=== PATIENT | female | born 1950 | race Caucasian/White ===

== ENCOUNTER 2017-04-23 14:58 | Observation (INO) | payer OTHER, MEDICARE ==
--- NOTE | 2017-04-23 15:49 | CPEKG ---
Heart Rate: 66 RR Interval: 909 P-R Interval: 164 QRSD Interval: 96 QT Interval: 404 QTC Interval: 424 P Dann[place]ora: 42 QRS Dannemora: 17 T Wave Dannemora: 36 EKG Severity - NORMAL ECG - EKG Impression: SINUS RHYTHM Electronically Signed By: Lucia Valenzuela 23-Apr-2017 20:06:38
--- NOTE | 2017-04-23 16:16 | EDPHY ---
H & P Time Seen by Provider: 04/23/17 15:29 HPI/ROS: CHIEF COMPLAINT: Multiple complaints HISTORY OF PRESENT ILLNESS: The patient is a 66-year-old female visiting [place] from [place] who presents to the emergency department with multiple complaints. She states that 2 weeks ago she developed cold-like symptoms. She had a sore throat in subsequent chills. She saw her content analyst 2 days later. At that time she had a negative workup with negative x-ray. She mentioned that she may have a sinus infection because she felt pressure on her head. He started her on Augmentin. She took the last dose yesterday. She has not had any improvement of her symptoms. She continues to have a mild sinus pressure. This is bilateral frontal. She has no neck pain or stiffness. Mild cough. No shortness of breath. No fevers or ongoing chills. Her sore throat is resolved. She has no chest pain or abdominal pain. No nausea vomiting or diarrhea. She has had mild frequency for the past 2 days. Patient adds that she may have struck her head 3 weeks ago. Since that time she has not felt quite right. She had no focal neurologic deficits. No visual change. No neck pain. REVIEW OF SYSTEMS: My complete review of systems is negative except as mentioned in the HPI. Past Medical/Surgical History: Includes hypertension, heart valve issue, high cholesterol, anxiety Past surgical history: Hysterectomy, carpal tunnel release Social history: The patient is from [place]. She does not smoke. Smoking Status: Never smoked Physical Exam: Vitals noted. 153/88. GENERAL: Well-appearing, in no acute distress, alert. HEENT: Eyes normal to inspection, normal pharynx, no signs of dehydration. NECK: No thyromegaly, no lymphadenopathy, supple. RESPIRATORY: Clear to auscultation bilaterally, no rales, rhonchi or wheezing. CVS: Regular rate and rhythm, no rubs, murmurs, or gallops. ABDOMEN: Soft, nontender, nondistended, no organomegaly. BACK: Normal to inspection, no CVA tenderness. SKIN: Normal color, no rash, warm, dry. No pallor. EXTREMITIES: No pedal edema, no calf tenderness, no Homans sign or cords, no joint swelling. NEURO/PSYCH: Higher functions: Alert and Oriented x3. Normal speech and cognition. Normal mood and affect. Cranial nerves: Normal as tested. Cerebellar: Normal as tested. Good finger to nose, good [id number], normal gait. Peripheral exam: Normal motor exam. Normal sensation. Constitutional: Initial Vital Signs Temperature (C) 37.0 C 04/23/17 15:06 Heart Rate 68 04/23/17 15:06 Respiratory Rate 16 04/23/17 15:06 Blood Pressure 153/88 H 04/23/17 15:06 O2 Sat (%) 97 04/23/17 15:06 O2 Delivery Mode Room Air Allergies/Adverse Reactions: No Known Allergies Allergy (Unverified 04/23/17 15:13) Home Medications: Medication Instructions Recorded Avapro 75 mg (*) 04/23/17 Coreg 04/23/17 Crestor 04/23/17 PRILOSEC 04/23/17 Zoloft 25mg (*) 04/23/17 Medical Decision Making - Diagnostics Imaging Results: Imaging Impressions Chest X-Ray 04/23/17 16:16 Impression: 1. Query airways disease with no superimposed acute abnormality identified. 2. See above report for additional findings. Head CT 04/23/17 17:06 Impression: Negative noncontrast CT of the head with no intracranial posttraumatic sequela identified. Results called and discussed with Dr. FARHEEN LAKE on 04/23/2017 at 17:59 ED Course/Re-evaluation: In the emergency department I discussed possible etiologies with the patient. I answered all her questions. She agreed the plan. EKG shows normal sinus rhythm, normal rate, normal axis, normal intervals. There are no ST or T-wave abnormalities. EKG is normal as interpreted by me. I reviewed the patient's laboratory studies. Of note her sodium was markedly low at 126. Chloride was also low. Her BUN and creatinine were normal. Head CT: Please refer the dictated report by Dr. Shreyas Mckenzie. No acute disease noted. No subdural hematoma. Chest x-ray: No acute disease noted. Discussed the results with the patient. I answered all her questions. I discussed the case with Dr. angel from hospital service. She will admit the patient. Urine sodium and urine osms were ordered. Differential Diagnosis: My differential includes but is not limited to sinusitis, pneumonia, bronchitis , viral illness, ACS, acute KS, chronic subdural, urinary tract infection, bacteremia, sepsis, electrolyte abnormality, sugar abnormality - Data Points Laboratory Results: Laboratory Results 04/23/17 15:30 04/23/17 15:30 04/23/17 04/23/17 04/23/17 16:40 16:40 15:30 WBC RBC Hgb Hct MCV MCH MCHC RDW Plt Count MPV Neut % (Auto) Lymph % (Auto) Petroleum % (Auto) Eos % (Auto) Baso % (Auto) Nucleat RBC Rel Count Absolute Neuts (auto) Absolute Lymphs (auto) Absolute Monos (auto) Absolute Eos (auto) Absolute Basos (auto) Absolute Nucleated RBC Immature Gran % Immature Gran # Sodium 126 mEq/L L mEq/L (134-144) Potassium 4.0 mEq/L mEq/L (3.5-5.2) Chloride 89 mEq/L L mEq/L (97-110) Carbon Dioxide 24 mEq/l mEq/l (22-31) Anion Gap 13 mEq/L mEq/L (8-16) BUN 10 mg/dL mg/dL (7-23) Creatinine 0.7 mg/dL mg/dL (0.6-1.0) Estimated GFR > 60 Glucose 118 mg/dL H mg/dL (70-100) Calcium 9.3 mg/dL mg/dL (8.5-10.4) Total Bilirubin 0.6 mg/dL mg/dL (0.1-1.4) Conjugated Bilirubin 0.3 mg/dL mg/dL (0.0-0.5) Unconjugated Bilirubin 0.3 mg/dL mg/dL (0.0-1.1) AST 48 IU/L H IU/L (14-46) ALT 53 IU/L H IU/L (9-52) Alkaline Phosphatase 59 IU/L IU/L (38-126) Troponin I < 0.012 ng/mL ng/mL (0.000-0.034) Total Protein 7.1 g/dL g/dL (6.3-8.2) Albumin 4.7 g/dL g/dL (3.5-5.0) Lipase 124 IU/L IU/L (23-300) Urine Color PALE YELLOW Urine Appearance CLEAR Urine pH 7.0 (5.0-7.5) Ur Specific [place] 1.003 (1.002-1.030) Urine Protein NEGATIVE (NEGATIVE) Urine Ketones NEGATIVE (NEGATIVE) Urine Blood NEGATIVE (NEGATIVE) Urine Nitrate NEGATIVE (NEGATIVE) Urine Bilirubin NEGATIVE (NEGATIVE) Urine Urobilinogen NEGATIVE EU EU (0.2-1.0) Ur Leukocyte Esterase NEGATIVE (NEGATIVE) Urine Osmolality Pending Ur Random Sodium Pending Urine Glucose NEGATIVE (NEGATIVE) 04/23/17 15:30 WBC 7.33 10^3/uL 10^3/uL (3.80-9.50) RBC 3.96 10^6/uL L 10^6/uL (4.18-5.33) Hgb 12.3 g/dL L g/dL (12.6-16.3) Hct 35.0 % L % (38.0-47.0) MCV 88.4 fL fL (81.5-99.8) MCH 31.1 pg pg (27.9-34.1) MCHC 35.1 g/dL g/dL (32.4-36.7) RDW 11.6 % % (11.5-15.2) Plt Count 342 10^3/uL 10^3/uL (150-400) MPV 9.8 fL fL (8.7-11.7) Neut % (Auto) 66.2 % % (39.3-74.2) Lymph % (Auto) 23.9 % % (15.0-45.0) Petroleum % (Auto) 6.1 % % (4.5-13.0) Eos % (Auto) 2.3 % % (0.6-7.6) Baso % (Auto) 1.1 % % (0.3-1.7) Nucleat RBC Rel Count 0.0 % % (0.0-0.2) Absolute Neuts (auto) 4.85 10^3/uL 10^3/uL (1.70-6.50) Absolute Lymphs (auto) 1.75 10^3/uL 10^3/uL (1.00-3.00) Absolute Monos (auto) 0.45 10^3/uL 10^3/uL (0.30-0.80) Absolute Eos (auto) 0.17 10^3/uL 10^3/uL (0.03-0.40) Absolute Basos (auto) 0.08 10^3/uL 10^3/uL (0.02-0.10) Absolute Nucleated RBC 0.00 10^3/uL 10^3/uL (0-0.01) Immature Gran % 0.4 % % (0.0-1.1) Immature Gran # 0.03 10^3/uL 10^3/uL (0.00-0.10) Sodium Potassium Chloride Carbon Dioxide Anion Gap BUN Creatinine Estimated GFR Glucose Calcium Total Bilirubin Conjugated Bilirubin Unconjugated Bilirubin AST ALT Alkaline Phosphatase Troponin I Total Protein Albumin Lipase Urine Color Urine Appearance Urine pH Ur Specific [place] Urine Protein Urine Ketones Urine Blood Urine Nitrate Urine Bilirubin Urine Urobilinogen Ur Leukocyte Esterase Urine Osmolality Ur Random Sodium Urine Glucose Medications Given: Discontinued Medications Sodium Chloride (Ns) 500 mls @ 0 mls/hr IV ONCE ONE PRN Reason: Wide Open Stop: 04/23/17 18:25 Last Admin: 04/23/17 18:32 Dose: 500 mls Ondansetron HCl (Zofran) 4 mg IVP EDNOW ONE Stop: 04/23/17 18:36 Last Admin: 04/23/17 18:37 Dose: 4 mg Departure - Departure Disposition: [facility] Inpatient Acute Clinical Impression: Hyponatremia Condition: Good
[2017-04-23 16:30] LABS: ALANINE AMINOTRANSFERASE 53 IU/L (9-52); ALBUMIN 4.7 g/dL (3.5-5.0); ALKALINE PHOSPHATASE 59 IU/L (38-126); ANION GAP 13 mEq/L (8-16); ASPARTATE AMINOTRANSFERASE 48 IU/L (14-46); BILIRUBIN,TOTAL 0.6 mg/dL (0.1-1.4); BILIRUBIN-CONJUGATED 0.3 mg/dL (0.0-0.5); BILIRUBIN-UNCONJUGATED 0.3 mg/dL (0.0-1.1); CALCIUM 9.3 mg/dL (8.5-10.4); CARBON DIOXIDE 24 mEq/l (22-31); CHLORIDE 89 mEq/L (97-110); CREATININE 0.7 mg/dL (0.6-1.0); GLOMERULAR FILTRATION RATE > 60; GLUCOSE 118 mg/dL (70-100); SODIUM 126 mEq/L (134-144); TOTAL PROTEIN 7.1 g/dL (6.3-8.2)
[2017-04-23 16:33] LABS: % IMMATURE GRANULYOCYTES 0.4 % (0.0-1.1); ABSOLUTE IMMATURE GRANULOCYTES 0.03 10^3/uL (0.00-0.10); ADD DIFF? NO; ADD MORPH? NO; ADD SCAN? NO; ATYPICAL LYMPHOCYTE FLAG 10 (0-99); FRAGMENT RBC FLAG 0 (0-99); HEMOGLOBIN 12.3 g/dL (12.6-16.3); LEFT SHIFT FLG 0 (0-99); LIPEMIA HEMOLYSIS FLAG 90 (0-99); MEAN CELL HEMOGLOBIN 31.1 pg (27.9-34.1); MEAN CELL HEMOGLOBIN CONCENTR. 35.1 g/dL (32.4-36.7); MEAN CELL VOLUME 88.4 fL (81.5-99.8); MEAN PLATELET VOLUME 9.8 fL (8.7-11.7); PLATELET CLUMPS FLAG 0 (0-99); PLATELET COUNT 342 10^3/uL (150-400); RED BLOOD CELL COUNT 3.96 10^6/uL (4.18-5.33); RED CELL DISTRIBUTION WIDTH 11.6 % (11.5-15.2)
[2017-04-23 16:41] LABS: TROPONIN I < 0.012 ng/mL (0.000-0.034)
[2017-04-23 17:02] LABS: COLOR PALE YELLOW; LEUKOCYTE ESTERASE,URINE NEGATIVE (NEGATIVE); NITRITE,URINE NEGATIVE (NEGATIVE)
[2017-04-23] MEDS ORDERED: NS 500 ML IV ONE (18:24)
[2017-04-23] MEDS ORDERED: ONDANSETRON 4 MG/2 ML VIAL IVP ONE (18:35)
[2017-04-23] MEDS ORDERED: ONDANSETRON 4 MG/2 ML VIAL IVP PRN (19:45)
[2017-04-23] MEDS ORDERED: ACETAMINOPHEN 325 MG TAB PO PRN (19:45)
[2017-04-23] MEDS ORDERED: ONDANSETRON DISINTEGRATING 4 MG TAB PO PRN (19:45)
[2017-04-23] MEDS ORDERED: DIAZEPAM 5 MG TAB PO PRN (19:47)
--- NOTE | 2017-04-23 19:57 | PDGENHP ---
History and Physical - Chief Complaint chills, dizziness - History of Present Illness 66 yo female with h/o hypertension and anxiety presents to ED with 2 weeks of upper respiratory symptoms, along with chills and dizziness. She reports a sore throat starting 2 weeks ago, followed by nasal congestion, cough and chills. She was treated for sinusitis with a week of augmentin. She continues to feel chills and is intermittently dizzy. She had a pre-syncopal event a couple of weeks ago. She recently flew to [place] from [place] and her symptoms have persisted so she came to the ED. She is followed by a bilingual nanny in [place] for hypertension and mitral valve disease. She was recently started on hydrochlorothiazide in addition to her Coreg and Valsartan for blood pressure. She has taken 25 mg of HCTZ daily for the past 4-6 weeks. She denies CP, SOB, nausea, vomiting or urinary symptoms. In the ED, her serum Na level is 126 and is admitted to the hospital for further management. History Information - Allergies/Home Medication List Allergies/Adverse Reactions: No Known Allergies Allergy (Unverified 04/23/17 15:13) Home Medications: Ascorbic Acid [Vitamin C 500 mg (*)] 500 mg PO DAILY 04/23/17 [Last Taken Unknown] Aspirin EC [Aspirin EC 81 mg (*)] 81 mg PO HS 04/23/17 [Last Taken Unknown] Carvedilol [Carvedilol] 12.5 mg PO BID@04/23/17 [Last Taken 04/23/17] Cholecalciferol Vit D3 [Vitamin D3 (*)] 1,000 units PO DAILY 04/23/17 [Last Taken Unknown] Diazepam [Diazepam] 2.5 - 5 mg PO DAILY PRN 04/23/17 [Last Taken Unknown] Herbals/Supplements -Info Only 1 ea PO DAILY 04/23/17 [Last Taken Unknown] Hydrochlorothiazide [Hydrochlorothiazide] 25 mg PO DAILY 04/23/17 [Last Taken ] Irbesartan [Irbesartan] 75 mg PO TID 04/23/17 [Last Taken 04/23/17] Multivitamins [Multivitamin (*)] 1 each PO DAILY 04/23/17 [Last Taken Unknown] Rosuvastatin Calcium [Crestor 5mg] 5 mg PO HS 04/23/17 [Last Taken Unknown] Sertraline HCl [Zoloft 50mg (*)] 50 mg PO HS 04/23/17 [Last Taken Unknown] Vitamin B Complex [Super B-50 Complex] 1 each PO DAILY 04/23/17 [Last Taken Unknown] I have personally reviewed and updated: family history, medical history, social history, surgical history - Past Medical History hypertension, hyperlipidemia Additional medical history: anxiety, mitral valve disease - Surgical History Reports: hysterectomy Additional surgical history: carpal tunnel surgery - Family History Positive for: non-pertinent - Social History Smoking Status: Never smoked Additional social history: Lives in [place]. Visiting her son in [place]. Review of Systems Review of Systems: ROS: 10pt was reviewed & negative except for what was stated in HPI & below Physical Exam Physical Exam: Temp Pulse Resp BP Pulse Ox 37.0 C 80 16 130/72 H 95 04/23/17 15:06 04/23/17 18:06 04/23/17 18:06 04/23/17 18:06 04/23/17 18:06 Constitutional: no apparent distress Eyes: PERRL Ears, Nose, Mouth, Throat: moist mucous membranes Cardiovascular: regular rate and rhythym, no murmur, rub, or gallop Respiratory: no respiratory distress, clear to auscultation Gastrointestinal: normoactive bowel sounds, soft, non-tender abdomen Skin: warm Musculoskeletal: full muscle strength Neurologic: AAOx3 Psychiatric: interacting appropriately, anxious Lab Data & Imaging Review 04/23/17 15:30 04/23/17 15:30 WBC 7.33 10^3/uL (3.80-9.50) 04/23/17 15:30 RBC 3.96 10^6/uL (4.18-5.33) L 04/23/17 15:30 Hgb 12.3 g/dL (12.6-16.3) L 04/23/17 15:30 Hct 35.0 % (38.0-47.0) L 04/23/17 15:30 MCV 88.4 fL (81.5-99.8) 04/23/17 15:30 MCH 31.1 pg (27.9-34.1) 04/23/17 15:30 MCHC 35.1 g/dL (32.4-36.7) 04/23/17 15:30 RDW 11.6 % (11.5-15.2) 04/23/17 15:30 Plt Count 342 10^3/uL (150-400) 04/23/17 15:30 MPV 9.8 fL (8.7-11.7) 04/23/17 15:30 Neut % (Auto) 66.2 % (39.3-74.2) 04/23/17 15:30 Lymph % (Auto) 23.9 % (15.0-45.0) 04/23/17 15:30 [place] % (Auto) 6.1 % (4.5-13.0) 04/23/17 15:30 Eos % (Auto) 2.3 % (0.6-7.6) 04/23/17 15:30 Baso % (Auto) 1.1 % (0.3-1.7) 04/23/17 15:30 Nucleat RBC Rel Count 0.0 % (0.0-0.2) 04/23/17 15:30 Absolute Neuts (auto) 4.85 10^3/uL (1.70-6.50) 04/23/17 15:30 Absolute Lymphs (auto) 1.75 10^3/uL (1.00-3.00) 04/23/17 15:30 Absolute Monos (auto) 0.45 10^3/uL (0.30-0.80) 04/23/17 15:30 Absolute Eos (auto) 0.17 10^3/uL (0.03-0.40) 04/23/17 15:30 Absolute Basos (auto) 0.08 10^3/uL (0.02-0.10) 04/23/17 15:30 Absolute Nucleated RBC 0.00 10^3/uL (0-0.01) 04/23/17: Immature Gran % 0.4 % (0.0-1.1) 04/23/17:30 Immature Gran # 0.03 10^3/uL (0.00-0.10) 04/23/17 15:30 Sodium 126 mEq/L (134-144) L 04/23/17 15:30 Potassium 4.0 mEq/L (3.5-5.2) 04/23/17 15:30 Chloride 89 mEq/L (97-110) L 04/23/17 15:30 Carbon Dioxide 24 mEq/l (22-31) 04/23/17 15:30 Anion Gap 13 mEq/L (8-16) 04/23/17 15:30 BUN 10 mg/dL (7-23) 04/23/17 15:30 Creatinine 0.7 mg/dL (0.6-1.0) 04/23/17 15:30 Estimated GFR > 60 04/23/17 15:30 Glucose 118 mg/dL (70-100) H 04/23/17 15:30 Calcium 9.3 mg/dL (8.5-10.4) 04/23/17 15:30 Total Bilirubin 0.6 mg/dL (0.1-1.4) 04/23/17 15:30 Conjugated Bilirubin 0.3 mg/dL (0.0-0.5) 04/23/17 15:30 Unconjugated Bilirubin 0.3 mg/dL (0.0-1.1) 04/23/17 15:30 AST 48 IU/L (14-46) H 04/23/17 15:30 ALT 53 IU/L (9-52) H 04/23/17 15:30 Alkaline Phosphatase 59 IU/L (38-126) 04/23/17 15:30 Troponin I < 0.012 ng/mL (0.000-0.034) 04/23/17 15:30 Total Protein 7.1 g/dL (6.3-8.2) 04/23/17 15:30 Albumin 4.7 g/dL (3.5-5.0) 04/23/17 15:30 Lipase 124 IU/L (23-300) 04/23/17 15:30 Urine Color PALE YELLOW 04/23/17 16:40 Urine Appearance CLEAR 04/23/17 16:40 Urine pH 7.0 (5.0-7.5) 04/23/17 16:40 Ur Specific [place] 1.003 (1.002-1.030) 04/23/17 16:40 Urine Protein NEGATIVE (NEGATIVE) 04/23/17 16:40 Urine Ketones NEGATIVE (NEGATIVE) 04/23/17 16:40 Urine Blood NEGATIVE (NEGATIVE) 04/23/17 16:40 Urine Nitrate NEGATIVE (NEGATIVE) 04/23/17 16:40 Urine Bilirubin NEGATIVE (NEGATIVE) 04/23/17 16:40 Urine Urobilinogen NEGATIVE EU (0.2-1.0) 04/23/17 16:40 Ur Leukocyte Esterase NEGATIVE (NEGATIVE) 04/23/17 16:40 Urine Osmolality 168 mosmo/kg (300-900) L 04/23/17 16:40 Ur Random Sodium 43 mEq/L (30-90) 04/23/17 16:40 Urine Glucose NEGATIVE (NEGATIVE) 04/23/17 16:40 Visualized and Interpreted Chest x-ray results: Yes Chest X-Ray results: no infiltrate Visualized and Interpreted EKG results: Yes EKG Interpretation: Positive for: normal sinsus rhythm Assessment & Plan Assessment: Hyponatremia - Suspect this is diuretic induced and her urine sodium is consistent with this. She just started HCTZ 4-6 weeks ago. This may be causing her dizziness and chills as well. She received 500 cc's NS in the ED. -Stop HCTZ -Recheck Na now after NS -Will run gentle NS overnight and recheck labs in am Hypertension - Cont Coreg and Valsartan. May need to replace HCTZ with an alternative agent, consider Norvasc. Will see how her BP looks in am. Anxiety - cont SSRI and prn BZD URI - CXR neg for PNA though some airway dz noted -prn nebs, supportive care Full code Dispo - obs
[2017-04-23] MEDS ORDERED: ALBUTEROL 3 ML DEYVIAL IH PRN (20:04)
[2017-04-23] MEDS ORDERED: SERTRALINE HCL 50 MG TAB PO SCH (21:00)
[2017-04-23] MEDS ORDERED: ASPIRIN EC 81 MG TAB PO SCH (21:00)
[2017-04-23] MEDS ORDERED: ROSUVASTATIN CALCIUM 10 MG TAB PO SCH (21:00)
[2017-04-23] MEDS: CARVEDILOL 6.25 MG TAB PO SCH (21:03)
[2017-04-23] MEDS: IRBESARTAN 75 MG TAB PO SCH (21:05)
[2017-04-23] MEDS ORDERED: NS 1,000 ML IV SCH (22:30)
[2017-04-24 04:44] VITALS: RESP 16
[2017-04-24 05:11] LABS: ANION GAP 8 mEq/L (8-16); CALCIUM 9.4 mg/dL (8.5-10.4); CARBON DIOXIDE 26 mEq/l (22-31); CHLORIDE 98 mEq/L (97-110); CREATININE 0.7 mg/dL (0.6-1.0); GLOMERULAR FILTRATION RATE > 60; GLUCOSE 87 mg/dL (70-100); SODIUM 132 mEq/L (134-144)
[2017-04-24 07:25] VITALS: BP 118/75; PULSE 72; TEMP 98.4; O2SAT 98
[2017-04-24] MEDS: IRBESARTAN 75 MG TAB PO SCH (07:47)
--- NOTE | 2017-04-24 10:06 | HOSPPROG ---
Hospitalist Progress Note Assessment/Plan: Patient is a 66-year-old female with history of hypertension and anxiety. She presented to the emergency room with 2 weeks of upper respiratory CIS symptoms along with chills and dizziness. She had a sore throat approximately 2 weeks ago and was treated for sinusitis with Augmentin. * hyponatremia sodium improved with hydration and holding hydrochlorothiazide * hypertension blood pressure is well managed with Coreg and valsartan * upper respiratory infection likely viral continue supportive care * anxiety resumed SSRI and p.r.n. benzodiazepines *Plan: patient is requesting I f/u with her airline flight attendant, Gagandeep Chatterjee Subjective: Chika is feeling better/no complaints. Objective: Vital Signs Temp Pulse Resp BP Pulse Ox 36.9 C 72 16 118/75 98 04/24/17 07:24 04/24/17 07:24 04/24/17 07:24 04/24/17 07:24 04/24/17 07:24 Laboratory Results 04/24/17 04:31 04/23/17 04/24/17 04/25/17 05:59 05:59 05:59 Intake Total 919 Balance 919 - Physical Exam Constitutional: no apparent distress, appears nourished, not in pain Eyes: PERRL Ears, Nose, Mouth, Throat: hearing normal Cardiovascular: regular rate and rhythym Respiratory: no respiratory distress Gastrointestinal: normoactive bowel sounds Skin: warm, normal color Neurologic: AAOx3 Psychiatric: interacting appropriately ICD10 Worksheet Patient Problems: Problems Problem Status Onset Hyponatremia Acute
--- NOTE | 2017-04-24 11:00 | GDS ---
[f rep st] DISCHARGE SUMMARY DISCHARGE DIAGNOSES: 1. Hyponatremia secondary to hypovolemia. 2. Hypertension. 3. Upper respiratory infection. 4. Anxiety. BRIEF HISTORY: The patient is a 66-year-old woman here visiting from the [facility]. She present ed the emergency room with 2 weeks of upper respiratory symptoms, along with chills and dizziness. S he was treated for sinusitis with a week of Augmentin. It was noted in the emergency room that her s odium level was 126. She was admitted for further care, treated IV fluids. Her hydrochlorothiazide has been placed on hold. I have also spoken to her c application developer in the [facility] who agrees with holding the hydrochlorothiazide. She will follow up with him in the outpatient setting. HOSPITAL COURSE PER PROBLEM: 1. Hyponatremia secondary to hypovolemia, holding hydrochlorothiazide. 2. Hypertension. Blood pressure is well managed with Coreg and valsartan. 3. Upper respiratory infection, likely viral. Lung sounds are clear. 4. Anxiety, resumed SSRI and p.r.n. benzodiazepines. CONDITION ON DISCHARGE: Stable. DISCHARGE PHYSICAL EXAMINATION: VITAL SIGNS: Blood pressure is 118/75, O2 saturation on room air 98 %, respiratory rate is 16, pulse 72, temperature is 36.9 Celsius. MEDICATIONS AT DISCHARGE: Please see the EMR. DISCHARGE INSTRUCTIONS: 1. To stay well hydrated. 2. Hold hydrochlorothiazide. 3. To follow up with Dr. Gagandeep Chatterjee, her c application developer in the [facility]. /[id number]/MODL
[2017-04-24] MEDS: CARVEDILOL 6.25 MG TAB PO SCH (11:22)
--- NOTE | 2017-04-25 16:01 | ASDISCHSUM ---
Discharge Information Plan Status:Home with No Needs Medically Cleared to Leave:04/24/2017 Discharge Date:04/24/2017 11:44 AM CM D/C Disposition:Home, Routine, Self-Care ADT D/C Disposition:Home, Routine, Self-Care Projected Discharge Date:04/24/2017 12:00 AM Transportation at D/C: Discharge Delay Reason: Follow-Up Date:04/24/2017 12:00 AM Discharge Slot: Final Diagnosis: Placement Information Patient Contact Information Contact Name:CLARI Relationship:Evan Address: Work Phone: City: [facility] Phone: State/[email or web address] Code: Email: Financial Information Financial Class:[facility] Primary Plan Desc:MEDICARE OUTPATIENT Primary Plan Number:[id number] Secondary Plan Desc:[employer]/MDR SUPPLEMENT Secondary Plan Number:[id number] Assessment Information Intervention Information
== END 2017-04-24 11:44 | disposition home or self-care (01) ==
LOC: F3E 20:36
PROVIDERS: ADMIT Hospitalist; ATTEND Internal Medicine
DX: E87.1 Hypo-osmolality and hyponatremia (principal); E86.1 Hypovolemia; I10 Essential (primary) hypertension; J06.9 Acute upper respiratory infection, unspecified; F41.9 Anxiety disorder, unspecified; E78.5 Hyperlipidemia, unspecified; I35.9 Nonrheumatic aortic valve disorder, unspecified
CPT/HCPCS: 70450; 71020; 93005; G0378; J2405; 96374